=== PATIENT | female | born 1940 | race Caucasian/White ===

== ENCOUNTER → 2023-12-16 | Outpatient (CLI) | payer OTHER ==
[~2023-12-16] MED LIST: BUPR150ER; CONEST1.25; HYDCHL25 PO; METF500; OLME20; Omeprazole20 M1; PROACE100 PO; PROGESTERONE CREAM; RXPROACE PO; [UNRECOGNIZED DRUG - REMARK] PO
== END ==
LOC: LAB SHORT 12:15 → LAB 12:15
DX: R35.0 Frequency of micturition (principal)
CPT/HCPCS: 87086

== ENCOUNTER → 2024-06-04 | Outpatient (CLI) | payer SELFPAY ==
[2024-06-04 21:02] LABS: Creatinine, Urine Random 90.1 mg/dL (27.00-270.00)
[2024-06-04 21:05] LABS: Microalb/Creat Ratio UR, Rand 80.355 mg/g (0.000-30.000); Microalbumin, Random Urine 72.4 mg/L (0.000-20.000)
== END | disposition home or self-care (01) ==
LOC: LAB 15:52 → LAB SHORT 15:52
PROVIDERS: Physician Assistant
DX: E11.9 Type 2 diabetes mellitus without complications (principal)
CPT/HCPCS: 82043; 82570

== ENCOUNTER 2024-07-14 08:35 | Observation (INO) | payer MEDICARE ==
[~2024-07-14] VITALS: Ht 152.4 cm; Wt 77.7 kg
[2024-07-14] VITALS (14 sets, daily range): BP systolic 137–167; BP diastolic 75–108
[~2024-07-14 08:35] MED LIST changes: +AMLO5 PO; +Acetaminophen 500 MG Tab PO SCH; +CHOLP PO; +EUTHYROX50 MCG PO; +LANS30EC PO; +Lactated Ringer's 1,000 ML IV SCH; +Triamcinolone A15 G3 TOP
[2024-07-14] MEDS ORDERED: Bupivacaine 0.5% W/EPI 1:200000 SDV 30 ML Vial ONE (09:24)
--- NOTE | 2024-07-14 09:28 | NUR ---
Ambulatory in Day Surgery WITH STEADY GAIT. ABLE TO USE RESTROOM INDEPENDENTLY. History, Chart, Medications and Allergies reviewed before start of procedure. Pre-Op teaching done. Pt verbalizes understanding. SPOUSE AT BEDSIDE. RED RASH NOTED ON BILAT LOWER ABD BEFORE CHLORIHEXIDINE WIPES USED. PT REPORTS RASH BEING NORMAL FOR HER. ALL BELONGINGS PLACED UNDER GURN. PT AND SPOUSE DENY ANY FURTHER QUESTIONS AT THIS TIME.
[2024-07-14] MEDS ORDERED: FLU VACC TS2024-25(6MOS UP)/PF 45 MCG/0.5 ML SYRINGE IM SCH (09:40)
[2024-07-14] MEDS ORDERED: Cholestyramine 4 GM PKT PO PRN (09:40)
[2024-07-14] MEDS ORDERED: propofoL 20 ML IV ONE (09:43)
[2024-07-14] MEDS ORDERED: Lidocaine HCl 2% 20 ML MDV ONE (09:44)
[2024-07-14] MEDS ORDERED: FentaNYL Citrate 50 MCG/ML 2 ML Injection ONE ×2 (09:44→11:13)
[2024-07-14] MEDS ORDERED: Rocuronium Bromide 10 MG/ML 5ML Injection IV ONE (09:44)
[2024-07-14] MEDS ORDERED: OxyCODONE HCL 5 MG TAB PO PRN (09:45)
[2024-07-14] MEDS ORDERED: Acetaminophen 325 MG TABLET PO PRN (09:45)
[2024-07-14] MEDS ORDERED: Dexamethasone Sod Phos 10 MG/ML 1ML VIAL ONE (09:45)
[2024-07-14] MEDS ORDERED: Ondansetron HCl 2 MG / ML 2ML Vial IV PRN (09:45)
[2024-07-14] MEDS ORDERED: HYDROmorphone HCl/Pf 1MG SYR IV PRN ×2 (09:45→10:30)
[2024-07-14] MEDS ORDERED: Labetalol HCL 5 MG/ML 4ML Injection (Single Dose) ONE (10:09)
[2024-07-14] MEDS ORDERED: Haloperidol Lactate Inj. 5 MG/ML Injection IV PRN (10:25)
[2024-07-14] MEDS ORDERED: Phenylephrine HCl 100 MCG/ML-NS 10MLSYR (1MG/10ML) ONE (10:57)
[2024-07-14] MEDS ORDERED: Ondansetron HCl 2 MG / ML 2ML Vial ONE (11:07)
[2024-07-14] MEDS ORDERED: Sugammadex Sodium 200 MG/2ML SDV (100 MG/ML) ONE (11:07)
[2024-07-14] MEDS ORDERED: Ketorolac Tromethamine 30mg Vial ONE (11:08)
[2024-07-14] MEDS ORDERED: Naloxone HCl 0.4MG / ML 1ML Vial ONE (11:21)
[2024-07-14] MEDS ORDERED: HYDROmorphone HCl/Pf 1MG SYR ONE (11:59)
[2024-07-14] MEDS ORDERED: Haloperidol Lactate Inj. 5 MG/ML Injection ONE (12:04)
--- NOTE | 2024-07-14 12:50 | NUR ---
PT ARRIVED TO UNIT FROM PACU TRANSFERRED FROM [facility] TO [facility]. PT REPORTED NAUSEA, MEDICATED PER ORDERS W/ZOFRAN. PROVIDED WARM BLANKET TO SHOULDERS FOR COMFORT. ORIENTED TO USE OF CALL LIGHT.
--- NOTE | 2024-07-14 17:33 | NUR ---
SUMMARY NO ACUTE CHANGES SINCE ARRIVING TO UNIT FROM PACU. MEDICATED PT PER ORDERS FOR NAUSEA SHORTLY AFTER ARRIVING TO UNIT. MEDICATED PER ORDERS FOR ESOHPAGEAL PAIN. PT HAS BEEN UP TO VOID. SLEEPING. CALL LIGHT IN REACH.
[2024-07-14] MEDS ORDERED: AmLODIPine Besylate 5 MG Tab PO SCH (21:00)
[2024-07-15 00:27] VITALS: BP 109/74
--- NOTE | 2024-07-15 04:27 | NUR ---
SHIFT SUMMARY POD 1 L ROBOTIC KAYLEY FUNDOPLICATION. NO ACUTE CHANGES OVERNIGHT. VSS. PT TOLERATING FULL LIQUID DIET, DENIES N/V. LAP SITE x4 c WOUND GLUE C/D/I. VOIDING. AMBULATES IND-SBA. PT REPORTS PAIN TOLERABLE, MEDICATED PER EMAR. ANTICIPATED DISCHARGE TODAY. CALL LIGHT IN REACH, BED IN LOWEST POSITION, WILL REPORT TO DAY RN.
[2024-07-15 05:06] VITALS: BP 119/74
[2024-07-15] MEDS ORDERED: Levothyroxine Sodium 0.05 MG Tab PO SCH (06:00)
[2024-07-15 07:45] VITALS: BP 119/72
[2024-07-15] MEDS ORDERED: Enoxaparin 40 MG/0.4 ML SYR SC SCH (09:00)
[2024-07-15] MEDS ORDERED: OXAYDO5 M2 PO (10:09)
--- NOTE | 2024-07-15 11:11 | NUR ---
DISCHARGE INSTRCUTIONS READ AND SIGNED, ALL BELONGINGS WITH PATIENT AND PRESCRIPTION SENT TO PHARM. 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 IV TAKEN OUT INTACT. PATIENT LEAVES PRIVATE VEHICLE.
== END 2024-07-15 10:30 | disposition home or self-care (01) ==
LOC: SURS 08:35 → PRE IP 08:35 → SURS 08:35 → PRE IP 09:30 → SURS 12:30
PROVIDERS: ADMIT Surgery
PROC: 0BQT4ZZ Repair Diaphragm, Percutaneous Endoscopic Approach (ICD-10-PCS; principal; 2024-07-14 09:30)
DX: K44.9 Diaphragmatic hernia without obstruction or gangrene (principal); K21.00 Gastro-esophageal reflux disease with esophagitis, without bleeding; E11.9 Type 2 diabetes mellitus without complications; I10 Essential (primary) hypertension; Z79.899 Other long term (current) drug therapy; Z88.5 Allergy status to narcotic agent; Z88.6 Allergy status to analgesic agent; Z88.8 Allergy status to other drugs, medicaments and biological substances; Z88.4 Allergy status to anesthetic agent; Z90.49 Acquired absence of other specified parts of digestive tract
CPT/HCPCS: 82947; A9270; J1100; J1171; J1630; J1885; J2310; J2371; J2405; J2704; J3010; J7120

== ENCOUNTER → 2025-04-01 | Outpatient (CLI) | payer MEDICARE, OTHER ==
[~2025-04-01] MED LIST changes: -Acetaminophen 500 MG Tab PO SCH; -Lactated Ringer's 1,000 ML IV SCH; +OXAYDO5 M2 PO
== END ==
LOC: LAB SHORT 14:02 → LAB 14:02
DX: R53.83 Other fatigue (principal); R82.998 Other abnormal findings in urine
CPT/HCPCS: 84484; 87086